=== PATIENT | female | born 2000 | race Caucasian/White ===

== ENCOUNTER 2018-11-13 08:00 | Emergency (ER) | payer OTHER, MEDICAID ==
[2018-11-13] MEDS: Sodium Chloride 0.9% 1,000 ML IV ONE (08:20)
[2018-11-13] MEDS: Dexamethasone 4 MG/ML SDV IVPUSH ONE (08:22)
[2018-11-13] MEDS: Sodium Chloride 0.9% 10 ML Syringe FLUSH PRN (08:25)
[2018-11-13] MEDS: Ondansetron 4 MG/2 ML SDV IVPUSH ONE (08:25)
[2018-11-13] MEDS: diphenhydrAMINE 50 MG/ML SDV IVPUSH ONE (08:29)
--- NOTE | 2018-11-13 09:02 | EDM.PDOC ---
ED HPI GENERAL MEDICAL PROBLEM - General Chief Complaint: General Stated Complaint: Migraine Time Seen by Provider: 11/13/18 08:50 Source of Information: Reports: Patient History Limitations: Reports: No Limitations - History of Present Illness INITIAL COMMENTS - FREE TEXT/NARRATIVE: Patient is a 17-year-old female who presents to the emergency department this morning with a complaint of migraine headache. Patient states that the migraine began yesterday afternoon, is a typical migraine for herself, and was not relieved with Motrin. Patient states headache is diffuse, moderate in intensity, and she does have some light sensitivity. Patient denies fever, stiff neck, out of country travel, blurry vision, upper respiratory or sinus issues, or any head injury. Onset: Gradual Duration: Day(s): Location: Reports: Head Quality: Reports: Ache, Throbbing Severity: Mild Improves with: Reports: None Worsens with: Reports: None Associated Symptoms: Reports: Headaches, Nausea/Vomiting. Denies: Fever/Chills Headache Pain Score (Numeric/FACES): 8 - Related Data Allergies Allergy/AdvReac Type Severity Reaction Status Date / Time Sulfa (Sulfonamide Allergy Rash Verified 11/13/18 08:17 Antibiotics) Home Meds: Home Meds DULoxetine HCl [Duloxetine HCl] 60 mg PO DAILY 11/13/18 [History] Ibuprofen 400 mg PO QID PRN 11/13/18 [History] SUMAtriptan [Imitrex] 25 mg PO TID #30 tab 11/13/18 [Rx] traMADol [Ultram] 50 mg PO Q6HR PRN 11/13/18 [History] ED ROS GENERAL - Review of Systems Review Of Systems: ROS reveals no pertinent complaints other than HPI. Constitutional: Reports: No Symptoms HEENT: Denies: Eye Pain, Sinus Problem Respiratory: Reports: No Symptoms Cardiovascular: Reports: No Symptoms Endocrine: Reports: No Symptoms GI/Abdominal: Reports: No Symptoms : Reports: No Symptoms Musculoskeletal: Reports: No Symptoms Skin: Reports: No Symptoms Neurological: Reports: Headache. Denies: Confusion, Dizziness, Numbness, Syncope, Trouble Speaking, Change in Speech, Gait Disturbance Psychiatric: Reports: No Symptoms Hematologic/Lymphatic: Reports: No Symptoms Immunologic: Reports: No Symptoms ED EXAM, GENERAL - Physical Exam Exam: See Below Exam Limited By: No Limitations General Appearance: Alert, WD/WN, No Apparent Distress Eye Exam: Bilateral Eye: Normal Inspection Ears: Normal External Exam, Normal Canal, Hearing Grossly Normal, Normal TMs Ear Exam: Bilateral Ear: Canal Normal, TM normal Nose: Normal Inspection, Normal Mucosa, No Blood Throat/Mouth: Normal Inspection, Normal Oropharynx, No Airway Compromise Head: Atraumatic, Normocephalic Neck: Normal Inspection, Supple, Non-Tender, Full Range of Motion. No: Lymphadenopathy (L), Lymphadenopathy (R) Respiratory/Chest: No Respiratory Distress, Lungs Clear, Normal Breath Sounds, No Accessory Muscle Use, Chest Non-Tender Cardiovascular: Regular Rate, Rhythm, No Murmur GI/Abdominal: Normal Bowel Sounds, Soft, Non-Tender Back Exam: Normal Inspection Extremities: Normal Inspection, No Pedal Edema Neurological: Alert, Oriented, CN II-XII Intact, Normal Cognition, No Motor/ Sensory Deficits Psychiatric: Normal Affect, Normal Mood Skin Exam: Warm, Dry, Intact, Normal Color, No Rash Lymphatic: No Adenopathy Course - Vital Signs Last Recorded V/S: Last Vital Signs Temp 97.3 F 11/13/18 08:05 Pulse 80 11/13/18 08:05 Resp 16 11/13/18 08:05 BP 145/83 H 11/13/18 08:05 Pulse Ox 98 11/13/18 08:05 - Orders/Labs/Meds Orders: Active Orders 24 hr Category Date Time Status Peripheral IV Care [RC] . DIRECTED Care 11/13/18 08:15 Active Sodium Chloride 0.9% [Normal Saline] 1,000 ml Med 11/13/18 08:15 Active IV .BOLUS Sodium Chloride 0.9% [Saline Flush] Med 11/13/18 08:15 Active 10 ml FLUSH Q8HR PRN Peripheral IV Insertion Adult [OM.PC] Routine Oth 11/13/18 08:15 Ordered Medication Orders Sodium Chloride (Normal Saline) 1,000 mls @ 999 mls/hr IV .BOLUS ONE Stop: 11/13/18 09:15 Last Admin: 11/13/18 08:20 Dose: 999 mls/hr Sodium Chloride (Saline Flush) 10 ml FLUSH Q8HR PRN PRN Reason: keep vein open Meds: Medications Generic Name Dose Route Start Last Admin Trade Name Freq PRN Reason Stop Dose Admin Sodium Chloride 1,000 mls @ 999 mls/hr 11/13/18 08:15 11/13/18 08:20 Normal Saline IV 11/13/18 09:15 999 mls/hr .BOLUS ONE Administration Sodium Chloride 10 ml 11/13/18 08:15 Saline Flush FLUSH Q8HR PRN keep vein open Discontinued Medications Generic Name Dose Route Start Last Admin Trade Name Everettq PRN Reason Stop Dose Admin Dexamethasone 8 mg 11/13/18 08:16 11/13/18 08:22 Dexamethasone IVPUSH 11/13/18 08:17 8 mg ONETIME ONE Administration Diphenhydramine HCl 25 mg 11/13/18 08:15 11/13/18 08:29 Benadryl IVPUSH 11/13/18 08:16 25 mg ONETIME ONE Administration Ondansetron HCl 4 mg 11/13/18 08:15 11/13/18 08:25 Zofran IVPUSH 11/13/18 08:16 4 mg ONETIME ONE Administration - Re-Assessments/Exams Free Text/Narrative Re-Assessment/Exam: 11/13/18 09:21 Patient afebrile, vital signs stable, headache, mostly resolved. Patient given 1 L normal saline, Decadron, Benadryl, Zofran. Patient will follow-up with PCP. Patient given prescription for Imitrex. Departure - Departure Time of Disposition: 09:22 Disposition: Home, Self-Care 01 Condition: Good Clinical Impression: Migraine headache Qualifiers: Migraine type: without aura Status migrainosus presence: without status migrainosus Intractability: not intractable Qualified Code(s): G43.009 - Migraine without aura, not intractable, without status migrainosus - Discharge Information Instructions: Recurrent Migraine Headache, [id number] Referrals: Monserrat Thomas PA-C [Primary Care Provider] - Additional Instructions: Follow up with Monserrat next 2-3 days. Return to emergency department sooner if symptoms continue or worsen. Take medication as prescribed. - My Orders Last 24 Hours: My Active Orders 11/13/18 08:15 Peripheral IV Care [RC] . DIRECTED Sodium Chloride 0.9% [Normal Saline] 1,000 ml IV .BOLUS Sodium Chloride 0.9% [Saline Flush] 10 ml FLUSH Q8HR PRN Peripheral IV Insertion Adult [OM.PC] Routine - Assessment/Plan Last 24 Hours: My Active Orders 11/13/18 08:15 Peripheral IV Care [RC] . DIRECTED Sodium Chloride 0.9% [Normal Saline] 1,000 ml IV .BOLUS Sodium Chloride 0.9% [Saline Flush] 10 ml FLUSH Q8HR PRN Peripheral IV Insertion Adult [OM.PC] Routine Assessment:: Migraine headache Plan: Follow-up with PCP
== END 2018-11-13 10:08 | disposition home or self-care (01) ==
LOC: KA.ED 08:00
DX: G43.009 Migraine without aura, not intractable, without status migrainosus (principal); Z88.2 Allergy status to sulfonamides; Z79.899 Other long term (current) drug therapy
CPT/HCPCS: 96361; 96374; 96375; 99283; J1100; J1200; J2405; J7030

== ENCOUNTER 2019-10-10 16:19 | Emergency (ER) | payer OTHER ==
--- NOTE | 2019-10-10 16:55 | EDM.PDOC ---
ED HPI GENERAL MEDICAL PROBLEM - General Chief Complaint: Gastrointestinal Problem Stated Complaint: ABDOMINAL PAIN Time Seen by Provider: 10/10/19 16:25 Source of Information: Reports: Patient History Limitations: Reports: No Limitations - History of Present Illness INITIAL COMMENTS - FREE TEXT/NARRATIVE: Patient is a 18-year-old female who presents to the emergency department via private vehicle with a complaint of abdominal pain. Patient states that she has chronic abdominal pain secondary to endometriosis. Patient states that intercourse is very painful. However, she does participate in unprotected sex. Patient has been seen multiple times for this condition, and is currently on hydrocodone for pain control. Patient states she has irregular menses and has a small amount of vaginal discharge. Patient denies fever, chest pain, shortness of breath, nausea, vomiting, diarrhea, vaginal bleeding, suspicion of . Onset: Gradual Duration: Chronic Location: Reports: Abdomen Quality: Reports: Other (Cramping) Improves with: Reports: None Worsens with: Reports: None Associated Symptoms: Reports: No Other Symptoms. 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 Constitutional: Reports: No Symptoms HEENT: Reports: No Symptoms Respiratory: Reports: No Symptoms Cardiovascular: Reports: No Symptoms Endocrine: Reports: No Symptoms GI/Abdominal: Reports: Abdominal Pain : Reports: Irregular Menses, Pain. Denies: Flank Pain Musculoskeletal: Reports: No Symptoms Skin: Reports: No Symptoms Neurological: Reports: No Symptoms Psychiatric: Reports: No Symptoms Hematologic/Lymphatic: Reports: No Symptoms Immunologic: Reports: No Symptoms ED EXAM, GI/ABD - Physical Exam Exam: See Below Exam Limited By: No Limitations General Appearance: Alert, WD/WN, No Apparent Distress Throat/Mouth: Normal Inspection, Normal Oropharynx, No Airway Compromise Head: Atraumatic, Normocephalic Respiratory/Chest: No Respiratory Distress, Lungs Clear, Normal Breath Sounds, No Accessory Muscle Use, Chest Non-Tender Cardiovascular: Regular Rate, Rhythm, No Murmur GI/Abdominal Exam: Normal Bowel Sounds, Soft, Tender (Suprapubic) (Female) Exam: Normal External Exam, Normal Speculum Exam, Normal Bimanual Exam, Cervical Discharge (Minimal white), Vaginal Discharge. No: Adnexal Mass, Adnexal Tenderness, Cervical Dilatation, Cervical Lesions, Cervix Motion Tenderness, Enlarged Uterus, Uterine Tenderness, Vaginal Bleeding, Vaginal Lesions, Vaginal Tears Rectal (Female) Exam: Deferred Back Exam: Normal Inspection. No: CVA Tenderness (L), CVA Tenderness (R) Extremities: Normal Inspection Neurological: Alert, Oriented, Normal Cognition Psychiatric: Normal Affect, Normal Mood Skin Exam: Warm, Dry, Intact, Normal Color, No Rash Lymphatic: No Adenopathy Course - Vital Signs Last Recorded V/S: Last Vital Signs Temp 98.2 F 10/10/19 16:44 Pulse 70 10/10/19 16:44 Resp 16 10/10/19 16:44 BP 146/83 H 10/10/19 16:44 Pulse Ox 99 10/10/19 16:44 - Orders/Labs/Meds Orders: Active Orders 24 hr Category Date Time Status CHLAMYDIA AND GONORRHEA BY TMA Stat Lab 10/10/19 17:40 Received Labs: Laboratory Tests 10/10/19 10/10/19 10/10/19 Range/Units 16:48 16:48 17:00 WBC 6.60 (5.00-10.00) 10^3/uL RBC 4.75 (3.80-5.50) 10^6/uL Hgb 14.1 (12.0-16.0) g/dL Hct 42.3 (37.0-47.0) % MCV 89.1 (82.0-92.0) fL MCH 29.7 (27.0-31.0) pg MCHC 33.3 (32.0-36.0) g/dL RDW 12.5 (11.5-14.5) % Plt Count 255 (150-400) 10^3/uL MPV 9.9 (7.4-10.4) fL Immature Gran % (Auto) 0.3 (0.0-5.0) % Neut % (Auto) 54.7 (50.0-70.0) % Lymph % (Auto) 34.1 (20.0-40.0) % [place] % (Auto) 9.1 H (2.0-8.0) % Eos % (Auto) 1.2 (1.0-3.0) % Baso % (Auto) 0.6 (0.0-1.0) % Neut # (Auto) 3.61 (2.50-7.00) 10^3/uL Lymph # (Auto) 2.25 (1.00-4.00) 10^3/uL [place] # (Auto) 0.60 (0.10-0.80) 10^3/uL Eos # (Auto) 0.08 L (0.10-0.30) 10^3/uL Baso # (Auto) 0.04 (0.00-0.10) 10^3/uL Immature Gran # (Auto) 0.02 (0.00-0.50) 10^3/uL Sodium 143 (136-145) mmol/L Potassium 3.8 (3.3-5.3) mmol/L Chloride 106 (98-115) mmol/L Carbon Dioxide 27.2 (21.0-32.0) mmol/L Anion Gap 13.6 (5-15) mmol/L BUN 14 (6-25) mg/dL Creatinine 0.62 (0.51-1.17) mg/dL Est Cr Clr Drug Dosing 109.22 mL/min Estimated GFR (MDRD) > 60 mL/min Glucose 86 (75 - 99) mg/dL Calcium 8.8 (8.7-10.3) mg/dL HCG, Quant 1 mIU/mL Specimen Type Urincc Urine Color Yellow (YELLOW) Urine Appearance Clear (CLEAR) Urine pH 7.0 (5.0-9.0) Ur Specific [place] 1.020 (1.005-1.030) Urine Protein Negative (NEGATIVE) mg/dL Urine Glucose (UA) Negative (NEGATIVE) mg/dL Urine Ketones Negative (NEGATIVE) mg/dL Urine Occult Blood Negative (NEGATIVE) Urine Nitrite Negative (NEGATIVE) Urine Bilirubin Negative (NEGATIVE) Urine Urobilinogen 0.2 (0.2-1.0) E.U./dL Ur Leukocyte Esterase Negative (NEGATIVE) Urine RBC 0-5 (0-5) /HPF Urine WBC 0-5 (0-5) /HPF Ur Epithelial Cells Moderate H /LPF Urine Bacteria Moderate H (NONE TO FEW) /HPF Urine Mucus Moderate H (NEGATIVE) /LPF - Radiology Interpretation Free Text/Narrative:: CT abdomen and pelvis show no acute intra-abdominal process - Re-Assessments/Exams Free Text/Narrative Re-Assessment/Exam: 10/10/19 18:53 Patient afebrile, vital signs stable, pain controlled. GC and chlamydia results pending Patient will follow-up with PCP 10/10/19 18:54 Departure - Departure Time of Disposition: 18:54 Disposition: Home, Self-Care 01 Condition: Good Clinical Impression: Abdominal pain - Discharge Information Instructions: Abdominal Pain, Adult, [id number] Referrals: Monserrat Thomas PA-C [Primary Care Provider] - Forms: ED Department Discharge Additional Instructions: Follow up with Monserrat on Saturday. Return to emergency department sooner if symptoms continue or worsen. Sepsis Event Note - Focused Exam Vital Signs: Vital Signs Temp Pulse Resp BP Pulse Ox 10/10/19 16:44 98.2 F 70 16 146/83 H 99 Date Exam was Performed: 10/10/19 Time Exam was Performed: 18:55 - My Orders Last 24 Hours: My Active Orders 10/10/19 17:40 CHLAMYDIA AND GONORRHEA BY TMA Stat - Assessment/Plan Last 24 Hours: My Active Orders 10/10/19 17:40 CHLAMYDIA AND GONORRHEA BY TMA Stat Assessment:: Abdominal pain Plan: Follow-up with PCP
[2019-10-10 17:33] LABS: ANION GAP 13.6 mmol/L (5-15); CHLORIDE,CL 106 mmol/L (98-115); SODIUM,NA 143 mmol/L (136-145)
--- NOTE | 2019-10-10 18:50 | CT ---
[id number] CT/CT Abdomen Pelvis WO IV EXAM: CT Abdomen Pelvis WO IV CLINICAL DATA: ABDOMINAL PAIN. COMPARISON STUDY: None. FINDINGS: Lung bases are clear. Liver, spleen, gallbladder, pancreas, adrenal glands, and kidneys are unremarkable. No bowel obstruction or inflammation. There is an appendicolith without evidence of acute appendicitis. Colonic diverticulosis without evidence of acute diverticulitis. No lymphadenopathy, free fluid, or pneumoperitoneum. Right adnexal cyst measuring up to 2.8 cm. Scattered changes of spondylosis the spine. No fracture or osseous lesion. IMPRESSION: 1. Multiple appendicoliths without evidence of acute appendicitis. No definite acute CT findings within the abdomen or pelvis to explain the patient's symptoms. Kevin Bedolla DO 10/10/19 [id number] Thank you for allowing us to participate in the care of your patient.
== END 2019-10-10 19:05 | disposition home or self-care (01) ==
LOC: KA.ED 16:19
DX: R10.30 Lower abdominal pain, unspecified (principal); G43.909 Migraine, unspecified, not intractable, without status migrainosus; F32.9 Major depressive disorder, single episode, unspecified; Z79.899 Other long term (current) drug therapy; Z88.2 Allergy status to sulfonamides
CPT/HCPCS: 36415; 74176; 80048; 81001; 84702; 85025; 87491; 87591; 99284-25

== ENCOUNTER 2019-11-20 11:35 | Emergency (ER) | payer OTHER ==
[2019-11-20] MEDS ORDERED: HYDROmorphone 1 MG/ML Syringe IVPUSH ONE (11:55)
--- NOTE | 2019-11-20 12:26 | EDM.PDOC ---
ED HPI GENERAL MEDICAL PROBLEM - General Chief Complaint: Abdominal Pain Stated Complaint: SEVERE STOMACH PAIN Time Seen by Provider: 11/20/19 12:15 Source of Information: Reports: Patient, Significant Other History Limitations: Reports: No Limitations - History of Present Illness INITIAL COMMENTS - FREE TEXT/NARRATIVE: Patient presents with abdominal pain that started yesterday after a laparascopic surgery in [place] for endometriosis and ovarian cyst removal. She says the pain is in the entire abdomen and up into her chest. She took Ibuprofen 600 mg and Hydrocodone 5/325 two hours ago and Hydrocodone 10/325 1.5 hours ago. She had a CT two weeks ago that didn't show the cyst which was found during procedure yesterday. She doesn't want another CT. She wants something stronger for pain control. She passed stool yesterday morning prior to the procedure. She ate a few crackers today and passed urine. 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 PICKLER: Reports: Other Medication(s) Lower Abdominal Pain Score (Numeric/FACES): 8 - Related Data Allergies Allergy/AdvReac Type Severity Reaction Status Date / Time Sulfa (Sulfonamide Allergy Rash Verified 11/20/19 11:46 Antibiotics) Home Meds: Home Meds DULoxetine HCl [Duloxetine HCl] 60 mg PO DAILY 11/13/18 [History] Hydrocodone/Acetaminophen [Hydrocodone-Acetamin 5-325 mg] 1 - 2 tab PO Q4H PRN 10/10/19 [History] Acetaminophen/HYDROcodone [[place] 325-10 MG] 1 tab PO ASDIRECTED 11/20/19 [History] Ergocalciferol (Vitamin D2) [Drisdol] 1,250 mcg PO ASDIRECTED 11/20/19 [History] Ibuprofen 600 mg PO TID 11/20/19 [History] Past Medical History 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: 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, Other (See Below) Other FARE COLLECTOR History: Surgical for endometriosis Musculoskeletal History: Reports: Fibromyalgia Neurological History: Reports: Migraines Psychiatric History: Reports: Depression - Past Surgical History Head Surgeries/Procedures: Reports: None Social & Family History - Family History Family Medical History: Noncontributory ED ROS GENERAL - Review of Systems Review Of Systems: See Below (Patient left abruptly so ROS is limited) Constitutional: Denies: Chills, Weakness HEENT: Denies: Throat Pain, Vision Change Respiratory: Denies: Shortness of Breath, Cough Cardiovascular: Denies: Syncope GI/Abdominal: Reports: Abdominal Pain. Denies: Constipation, Diarrhea, Vomiting : Reports: Dysuria (it hurt a little when she urinated an hour ago). Denies: Hematuria, Incontinence Musculoskeletal: Reports: No Symptoms Skin: Denies: Cyanosis, Jaundice, Mottled, Pallor, Diaphoresis Neurological: Denies: Confusion, Seizure, Syncope, Trouble Speaking, Difficulty Walking Psychiatric: Reports: Agitation, Anxiety. Denies: Confusion ED EXAM, GI/ABD - Physical Exam Exam: See Below Exam Limited By: No Limitations General Appearance: Alert, WD/WN, No Apparent Distress Eyes: Bilateral: Normal Appearance, EOMI Ears: Normal External Exam, Hearing Grossly Normal Nose: Normal Inspection, No Blood Throat/Mouth: Normal Inspection, Normal Voice, No Airway Compromise Head: Atraumatic, Normocephalic Neck: Normal Inspection, Full Range of Motion Respiratory/Chest: No Respiratory Distress, Lungs Clear, Normal Breath Sounds, No Accessory Muscle Use Cardiovascular: Regular Rate, Rhythm, No Murmur GI/Abdominal Exam: Normal Bowel Sounds, Soft, No Organomegaly, No Distention, Tender (throughout but worse in LLQ; incisions consistent with recent laparoscopy in RLQ and LLQ without evidence of infection.). No: Distended, Rigid Back Exam: Full Range of Motion, CVA Tenderness (L), CVA Tenderness (R) Extremities: Normal Inspection, Normal Range of Motion Neurological: Alert, Oriented, Normal Cognition, No Motor/Sensory Deficits Psychiatric: Normal Affect, Anxious Skin Exam: Warm, Dry, Intact, Normal Color, No Rash Course - Vital Signs Last Recorded V/S: Last Vital Signs Temp 100.5 F 11/20/19 11:37 Pulse 91 11/20/19 11:37 Resp 16 11/20/19 11:37 BP 143/81 H 11/20/19 11:37 Pulse Ox 98 11/20/19 11:37 - Orders/Labs/Meds Orders: Active Orders 24 hr Category Date Time Status Abdomen Pelvis w Cont [CT] Stat Exams 11/20/19 11:55 Ordered Meds: Medications Discontinued Medications Generic Name Dose Route Start Last Admin Trade Name Freq PRN Reason Stop Dose Admin Hydromorphone HCl 1 mg 11/20/19 11:55 Dilaudid IVPUSH 11/20/19 11:56 ONETIME ONE - Re-Assessments/Exams Free Text/Narrative Re-Assessment/Exam: 11/20/19 12:45 I was discussing findings and treatment options with patient. I offered IV Toradol and Dilaudid but patient declined when she learned that she wouldn't get anything stronger to take home with her. She says she has plenty of the Hydrocodone 5/325 and 10/325 as well as Ibuprofen 600 at home. I advised her to walk several times a day to help remove the abdominal gas from the surgery. Patient left abruptly. Departure - Departure Time of Disposition: 12:48 Disposition: Home, Self-Care 01 Condition: Good Clinical Impression: Abdominal pain - Discharge Information Referrals: Monserrat hTomas PA-C [Primary Care Provider] - Sepsis Event Note (ED) - Evaluation Sepsis Screening Result: No Definite Risk - Focused Exam Vital Signs: Vital Signs Temp Pulse Resp BP Pulse Ox 11/20/19 11:37 100.5 F 91 16 143/81 H 98 - My Orders Last 24 Hours: My Active Orders 11/20/19 11:55 Abdomen Pelvis w Cont [CT] Stat - Assessment/Plan Last 24 Hours: My Active Orders 11/20/19 11:55 Abdomen Pelvis w Cont [CT] Stat
== END 2019-11-20 12:30 | disposition home or self-care (01) ==
LOC: KA.ED 11:35
DX: R10.32 Left lower quadrant pain (principal); F32.9 Major depressive disorder, single episode, unspecified; Z88.2 Allergy status to sulfonamides; Z79.899 Other long term (current) drug therapy
CPT/HCPCS: 99283; 99284

== ENCOUNTER 2019-11-24 16:16 | Emergency (ER) | payer OTHER ==
[2019-11-24 16:33] VITALS: BP 155/78; PULSE 97
[2019-11-24] MEDS: Sodium Chloride 0.9% 1,000 ML IV ONE (16:55)
[2019-11-24] MEDS ORDERED: Sodium Chloride 0.9% 10 ML Syringe FLUSH PRN (16:59)
--- NOTE | 2019-11-24 17:17 | EDM.PDOC ---
ED HPI GENERAL MEDICAL PROBLEM - General Chief Complaint: General Stated Complaint: VAGINAL BLEEDING Time Seen by Provider: 11/24/19 16:45 Source of Information: Reports: Patient History Limitations: Reports: No Limitations - History of Present Illness INITIAL COMMENTS - FREE TEXT/NARRATIVE: 18 YO FEMALE PRESENTS TO ER COMPLAINING OF VAGINAL BLEEDING WHICH BEGAN 5 DAYS AGO. PT REPORTS LAPAROSCOPIC ABDOMINAL SURGERY FOR ENDOMETRIOSIS ON 11/19/2019. PT STATES SHE WAS HAVING VAGINAL BLEEDING THE FOLLOWING DAY AND BECAME CONCERNED WHEN SHE NOTICED LARGE CLOTS. PT REPORTS THE BLEEDING HAS BEEN LESS THAN HER NORMAL MENSES BUT AFTER TALKING TO HER NURSE PRACTICAL SHE THOUGHT IT WOULD BE BEST TO HAVE HER BLOOD COUNT CHECKED. PT STATES SHE FEELS FATIGUED BUT DENIES SHORTNESS OF BREATH, CHEST PAIN OR DIZZINESS. PT DENIES FEVER/CHILLS, HAS NAUSEA WITHOUT VOMITING. Onset Date: 11/19/19 Duration: Day(s): (5) Location: Reports: Generalized Severity: Mild Improves with: Reports: None Worsens with: Reports: None Associated Symptoms: Reports: Malaise, Nausea/Vomiting - Related Data Allergies Allergy/AdvReac Type Severity Reaction Status Date / Time Sulfa (Sulfonamide Allergy Rash Verified 11/24/19 16:33 Antibiotics) Home Meds: Home Meds DULoxetine HCl [Duloxetine HCl] 60 mg PO DAILY 11/13/18 [History] Hydrocodone/Acetaminophen [Hydrocodone-Acetamin 5-325 mg] 1 - 2 tab PO Q4H PRN 10/10/19 [History] Acetaminophen/HYDROcodone [[place] 325-10 MG] 1 tab PO ASDIRECTED 11/20/19 [History] Ergocalciferol (Vitamin D2) [Drisdol] 1,250 mcg PO ASDIRECTED 11/20/19 [History] Ibuprofen 600 mg PO TID PRN 11/20/19 [History] SUMAtriptan succinate [Imitrex] 25 mg PO Q2H PRN 11/24/19 [History] traMADol HCl [Tramadol HCl] 50 mg PO QID PRN 11/24/19 [History] Past Medical History Cardiovascular History: Reports: Heart Murmur 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: Reports: 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, Other (See Below) Other 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: Surgical for endometriosis Musculoskeletal History: Reports: Fibromyalgia Neurological History: Reports: Migraines Psychiatric History: Reports: Depression - Past Surgical History Head Surgeries/Procedures: Reports: None Social & Family History - Family History Family Medical History: Noncontributory - Tobacco Use Smoking Status *Q: Current Some Day Smoker Years of Tobacco use: 3 Packs/Tins Daily: 0.1 - Caffeine Use Caffeine Use: Reports: Coffee, Energy Drinks, Tea - Recreational Drug Use Recreational Drug Use: Yes Drug Use in Last 12 Months: Yes Recreational Drug Type: Reports: Marijuana/Hashish ED ROS GENERAL - Review of Systems Review Of Systems: See Below Constitutional: Reports: No Symptoms HEENT: Reports: No Symptoms Respiratory: Reports: No Symptoms Cardiovascular: Reports: No Symptoms Endocrine: Reports: No Symptoms GI/Abdominal: Reports: Nausea : Reports: No Symptoms Musculoskeletal: Reports: No Symptoms Skin: Reports: No Symptoms Neurological: Reports: No Symptoms Psychiatric: Reports: No Symptoms Hematologic/Lymphatic: Reports: No Symptoms Immunologic: Reports: No Symptoms ED EXAM, GENERAL - Physical Exam Exam: See Below Exam Limited By: No Limitations General Appearance: Alert, WD/WN, No Apparent Distress Eye Exam: Bilateral Eye: EOMI, PERRL Throat/Mouth: Normal Inspection, Normal Lips, Normal Teeth, Normal Gums, Normal Oropharynx, Normal Voice, No Airway Compromise Head: Atraumatic, Normocephalic Neck: Normal Inspection, Supple, Non-Tender, Full Range of Motion Respiratory/Chest: No Respiratory Distress, Lungs Clear, Normal Breath Sounds, No Accessory Muscle Use, Chest Non-Tender Cardiovascular: Normal Peripheral Pulses, Regular Rate, Rhythm, No Edema, No Gallop, No JVD, No Murmur, No Rub GI/Abdominal: Normal Bowel Sounds, Soft, Non-Tender, No Organomegaly, No Distention, No Abnormal Bruit, No Mass Back Exam: Normal Inspection, Full Range of Motion, NT Extremities: Normal Inspection, Normal Range of Motion, Non-Tender, Normal Capillary Refill, No Pedal Edema Neurological: Alert, Oriented, CN II-XII Intact, Normal Cognition, Normal Gait, Normal Reflexes, No Motor/Sensory Deficits Psychiatric: Normal Affect, Normal Mood Skin Exam: Warm, Dry, Intact, Normal Color, No Rash Lymphatic: No Adenopathy Course - Vital Signs Last Recorded V/S: Last Vital Signs Temp 36.1 C 11/24/19 16:25 Pulse 97 11/24/19 16:25 Resp 18 11/24/19 16:25 BP 155/78 H 11/24/19 16:25 Pulse Ox 98 11/24/19 16:25 Orthostatic Blood Pressure [ 130/80 Standing] Orthostatic Blood Pressure [ 141/83 Sitting] Orthostatic Blood Pressure [ 154/88 Supine] - Orders/Labs/Meds Orders: Active Orders 24 hr Category Date Time Status Peripheral IV Care [RC] . DIRECTED Care 11/24/19 16:59 Active Sodium Chloride 0.9% [Normal Saline] 1,000 ml Med 11/24/19 16:43 Active IV .BOLUS Sodium Chloride 0.9% [Saline Flush] Med 11/24/19 16:59 Active 10 ml FLUSH Q8HR PRN Peripheral IV Insertion Adult [OM.PC] Routine Oth 11/24/19 16:59 Ordered Medication Orders Sodium Chloride (Normal Saline) 1,000 mls @ 999 mls/hr IV .BOLUS ONE Stop: 11/24/19 17:43 Last Admin: 11/24/19 16:55 Dose: 999 mls/hr Documented by: NICOLAS Sodium Chloride (Saline Flush) 10 ml FLUSH Q8HR PRN PRN Reason: keep vein open Labs: Laboratory Tests 11/24/19 11/24/19 Range/Units 16:54 16:54 WBC 6.78 (5.00-10.00) 10^3/uL RBC 4.93 (3.80-5.50) 10^6/uL Hgb 14.6 (12.0-16.0) g/dL Hct 43.6 (37.0-47.0) % MCV 88.4 (82.0-92.0) fL MCH 29.6 (27.0-31.0) pg MCHC 33.5 (32.0-36.0) g/dL RDW 12.1 (11.5-14.5) % Plt Count 291 D (150-400) 10^3/uL MPV 9.7 (7.4-10.4) fL Immature Gran % (Auto) 0.4 (0.0-5.0) % Neut % (Auto) 58.6 (50.0-70.0) % Lymph % (Auto) 29.4 (20.0-40.0) % Weber % (Auto) 6.9 (2.0-8.0) % Eos % (Auto) 3.8 H (1.0-3.0) % Baso % (Auto) 0.9 (0.0-1.0) % Neut # (Auto) 3.97 (2.50-7.00) 10^3/uL Lymph # (Auto) 1.99 (1.00-4.00) 10^3/uL Weber # (Auto) 0.47 (0.10-0.80) 10^3/uL Eos # (Auto) 0.26 (0.10-0.30) 10^3/uL Baso # (Auto) 0.06 (0.00-0.10) 10^3/uL Immature Gran # (Auto) 0.03 (0.00-0.50) 10^3/uL Sodium 140 (136-145) mmol/L Potassium 4.0 (3.3-5.3) mmol/L Chloride 103 (98-115) mmol/L Carbon Dioxide 28.8 (21.0-32.0) mmol/L Anion Gap 12.2 (5-15) mmol/L BUN 9 (6-25) mg/dL Creatinine 0.70 (0.51-1.17) mg/dL Est Cr Clr Drug Dosing 96.74 mL/min Estimated GFR (MDRD) > 60 mL/min Glucose 86 (75 - 99) mg/dL Calcium 9.3 (8.7-10.3) mg/dL Total Bilirubin 0.5 (0.2-1.0) mg/dL AST 12 L (15-37) U/L ALT 16 (12-78) U/L Alkaline Phosphatase 56 (46-116) IU/L Total Protein 8.3 H (6.4-8.2) g/dL Albumin 4.51 (3.00-4.80) g/dL HCG, Qual Negative (NEGATIVE) Meds: Medications Generic Name Dose Route Start Last Admin Trade Name Freq PRN Reason Stop Dose Admin Sodium Chloride 1,000 mls @ 999 mls/hr 11/24/19 16:43 11/24/19 16:55 Normal Saline IV 11/24/19 17:43 999 mls/hr .BOLUS ONE Administration Sodium Chloride 10 ml 11/24/19 16:59 Saline Flush FLUSH Q8HR PRN keep vein open Departure - Departure Time of Disposition: 17:21 Disposition: Home, Self-Care 01 Condition: Good Clinical Impression: Dysfunctional uterine bleeding - Discharge Information Instructions: Abnormal Uterine Bleeding Referrals: Monserrat Thomas PA-C [Primary Care Provider] - Forms: ED Department Discharge Additional Instructions: 1. DISCHARGE HOME 2. FOLLOW UP WITH NURSE PRACTICAL FOR CONSIDERATION OF HORMONE REPLACEMENT THERAPY 3. RETURN TO ER FOR WORSENING SYMPTOMS 4. RETURN TO ER IF BLEEDING THROUGH 5 PADS IN 1 HOUR OR YOU BECOME SYMPTOMATIC. Sepsis Event Note (ED) - Evaluation Sepsis Screening Result: No Definite Risk - Focused Exam Vital Signs: Vital Signs Temp Pulse Resp BP Pulse Ox 11/24/19 16:25 36.1 C 97 18 155/78 H 98 - My Orders Last 24 Hours: My Active Orders 11/24/19 16:43 Sodium Chloride 0.9% [Normal Saline] 1,000 ml IV .BOLUS 11/24/19 16:59 Peripheral IV Care [RC] . DIRECTED Sodium Chloride 0.9% [Saline Flush] 10 ml FLUSH Q8HR PRN Peripheral IV Insertion Adult [OM.PC] Routine - Assessment/Plan Last 24 Hours: My Active Orders 11/24/19 16:43 Sodium Chloride 0.9% [Normal Saline] 1,000 ml IV .BOLUS 11/24/19 16:59 Peripheral IV Care [RC] . DIRECTED Sodium Chloride 0.9% [Saline Flush] 10 ml FLUSH Q8HR PRN Peripheral IV Insertion Adult [OM.PC] Routine Assessment:: 1. DYSFUNCTIONAL UTERINE BLEEDING Plan: 1. DISCHARGE HOME 2. FOLLOW UP WITH NURSE PRACTICAL FOR CONSIDERATION OF HORMONE REPLACEMENT THERAPY 3. RETURN TO ER FOR WORSENING SYMPTOMS 4. RETURN TO ER IF BLEEDING THROUGH 5 PADS IN 1 HOUR OR YOU BECOME SYMPTOMATIC.
[2019-11-24 17:23] LABS: ANION GAP 12.2 mmol/L (5-15); CHLORIDE,CL 103 mmol/L (98-115); SODIUM,NA 140 mmol/L (136-145)
== END 2019-11-24 17:45 | disposition home or self-care (01) ==
LOC: KA.ED 16:16
DX: N93.8 Other specified abnormal uterine and vaginal bleeding (principal); F32.9 Major depressive disorder, single episode, unspecified; F17.210 Nicotine dependence, cigarettes, uncomplicated; Z79.899 Other long term (current) drug therapy; Z88.2 Allergy status to sulfonamides
CPT/HCPCS: 36415; 80053; 84703; 85025; 96360; 99284; 99284-25; J7030

== ENCOUNTER 2020-06-24 12:41 | Emergency (ER) | payer OTHER ==
[2020-06-24] MEDS ORDERED: Sodium Chloride 0.9% 10 ML Syringe FLUSH PRN (12:45)
--- NOTE | 2020-06-24 13:18 | EDM.PDOC ---
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 PT WITH HISTORY OF ENDOMETRIOSIS AND OVARIAN CYST WHICH SHES HAD EXPLORATORY LAPAROSCOPY 11/2019. PT REPORTS SHE WAS SEEN IN [place] ER LAST WEEK FOR LOWER ABDOMINAL PAIN AND HAD A NORMAL CT OF HER ABD/PELVIS AND WAS SENT HOME WITH PAIN MEDICATION FOR HER CHRONIC ABDOMINAL COMPLAINTS. PT DENIES FEVER/CHILLS, NO NAUSEA/VOMITING, NO BACK OR FLANK PAIN. Onset: Today Duration: Chronic, Waxing/Waning Location: Reports: Abdomen Quality: Reports: Ache Severity: Moderate Improves with: Reports: None Worsens with: Reports: None Associated Symptoms: Reports: No Other Symptoms. Denies: Chest Pain, Cough, Fever/Chills, Nausea/Vomiting, Shortness of Breath Abdominal Pain Score (Numeric/FACES): 10 - Related Data Allergies Allergy/AdvReac Type Severity Reaction Status Date / Time Sulfa (Sulfonamide Allergy Rash Verified 06/24/20 12:52 Antibiotics) Home Meds: Home Meds DULoxetine HCl [Duloxetine HCl] 60 mg PO DAILY 11/13/18 [History] Hydrocodone/Acetaminophen [Hydrocodone-Acetamin 5-325 mg] 1 - 2 tab PO Q4H PRN 10/10/19 [History] Acetaminophen/HYDROcodone [[place] 325-10 MG] 1 tab PO ASDIRECTED 11/20/19 [History] Ergocalciferol (Vitamin D2) [Drisdol] 1,250 mcg PO ASDIRECTED 11/20/19 [History] Ibuprofen 600 mg PO TID PRN 11/20/19 [History] SUMAtriptan succinate [Imitrex] 25 mg PO Q2H PRN 11/24/19 [History] traMADol HCl [Tramadol HCl] 50 mg PO QID PRN 11/24/19 [History] Hydrocodone/Acetaminophen [Hydrocodone-Acetamin 10-325 mg] 1 each PO Q6HR PRN #10 tablet 06/24/20 [Rx] Nitrofurantoin Monohyd/M-Cryst [Macrobid 100 mg Capsule] 100 mg PO BID #14 capsule 06/24/20 [Rx] Phenazopyridine [Pyridium] 200 mg PO TID PRN #6 tab 06/24/20 [Rx] Past Medical History Cardiovascular History: Reports: Heart Murmur 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 History: Reports: 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, Other (See Below) Other 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 History: Surgical for endometriosis Musculoskeletal History: Reports: Fibromyalgia Neurological History: Reports: Migraines Psychiatric History: Reports: Depression - Past Surgical History Head Surgeries/Procedures: Reports: None Social & Family History - Family History Family Medical History: No Pertinent Family History - Tobacco Use Tobacco Use Status *Q: Current Every Day Tobacco User Years of Tobacco use: 5 Packs/Tins Daily: 0.1 - Caffeine Use Caffeine Use: Reports: Coffee, Energy Drinks, Tea - Alcohol Use Days Per Week of Alcohol Use: 1 Number of Drinks Per Day: 1 Total Drinks Per Week: 1 - Recreational Drug Use Recreational Drug Use: Yes Recreational Drug Type: Reports: Marijuana/Hashish ED ROS GENERAL - Review of Systems Review Of Systems: See Below Constitutional: Reports: No Symptoms HEENT: Reports: No Symptoms Respiratory: Reports: No Symptoms Cardiovascular: Reports: No Symptoms Endocrine: Reports: No Symptoms GI/Abdominal: Reports: Abdominal Pain : Reports: No Symptoms Musculoskeletal: Reports: No Symptoms Skin: Reports: No Symptoms Neurological: Reports: No Symptoms Psychiatric: Reports: No Symptoms Hematologic/Lymphatic: Reports: No Symptoms Immunologic: Reports: No Symptoms ED EXAM, GI/ABD - Physical Exam Exam: See Below Exam Limited By: No Limitations General Appearance: Alert, WD/WN, No Apparent Distress Head: Atraumatic, Normocephalic Neck: Normal Inspection, Supple, Non-Tender, Full Range of Motion Respiratory/Chest: No Respiratory Distress, Lungs Clear, Normal Breath Sounds, No Accessory Muscle Use, Chest Non-Tender Cardiovascular: Normal Peripheral Pulses, Regular Rate, Rhythm, No Edema, No Gallop, No JVD, No Murmur, No Rub GI/Abdominal Exam: Normal Bowel Sounds, Soft, No Organomegaly, No Distention, No Abnormal Bruit, No Mass, Pelvis Stable, Tender (SUPRAPUBIC PAIN) Back Exam: Normal Inspection, Full Range of Motion, NT Extremities: Normal Inspection, Normal Range of Motion, Non-Tender, Normal Capillary Refill, No Pedal Edema Neurological: Alert, Oriented, CN II-XII Intact, Normal Cognition, Normal Gait, Normal Reflexes, No Motor/Sensory Deficits Psychiatric: Normal Affect, Normal Mood Skin Exam: Warm, Dry, Intact, Normal Color, No Rash Lymphatic: No Adenopathy Course - Vital Signs Last Recorded V/S: Last Vital Signs Temp 97.9 F 06/24/20 12:47 Pulse 81 06/24/20 12:47 Resp 16 06/24/20 12:47 BP 122/80 06/24/20 12:47 Pulse Ox 98 06/24/20 12:47 - Orders/Labs/Meds Orders: Active Orders 24 hr Category Date Time Status Peripheral IV Care [RC] . DIRECTED Care 06/24/20 12:45 Active Sodium Chloride 0.9% [Saline Flush] Med 06/24/20 12:45 Active 10 ml FLUSH Q8HR PRN Peripheral IV Insertion Adult [OM.PC] Routine Oth 06/24/20 12:45 Ordered Medication Orders Sodium Chloride (Saline Flush) 10 ml FLUSH Q8HR PRN PRN Reason: keep vein open Labs: Laboratory Tests 06/24/20 06/24/20 Range/Units 13:00 13:00 Specimen Type Urinvoid Urine Color Rula H (YELLOW) Urine Appearance Turbid H (CLEAR) Urine pH 6.0 (5.0-9.0) Ur Specific [place] 1.025 (1.005-1.030) Urine Protein 100 H (NEGATIVE) mg/dL Urine Glucose (UA) 100 H (NEGATIVE) mg/dL Urine Ketones 40 H (NEGATIVE) mg/dL Urine Occult Blood Large H (NEGATIVE) Urine Nitrite Positive H (NEGATIVE) Urine Bilirubin Small H (NEGATIVE) Urine Urobilinogen 1.0 (0.2-1.0) E.U./dL Ur Leukocyte Esterase Trace H (NEGATIVE) Urine RBC Packed (0-5) /HPF Urine WBC 10-20 H (0-5) /HPF Ur Epithelial Cells Few /LPF Urine Bacteria Few (NONE TO FEW) /HPF Urine HCG, Qual Negative (NEGATIVE) Meds: Medications Generic Name Dose Route Start Last Admin Trade Name Freq PRN Reason Stop Dose Admin Sodium Chloride 10 ml 06/24/20 12:45 Saline Flush FLUSH Q8HR PRN keep vein open Departure - Departure Time of Disposition: 14:02 Disposition: Home, Self-Care 01 Condition: Good Clinical Impression: Chronic pelvic pain in female, Urinary tract infection - Discharge Information Prescriptions: Hydrocodone/Acetaminophen [Hydrocodone-Acetamin 10-325 mg] 1 each PO Q6HR PRN #10 tablet PRN Reason: Pain Nitrofurantoin Monohyd/M-Cryst [Macrobid 100 mg Capsule] 100 mg PO BID #14 capsule Phenazopyridine [Pyridium] 200 mg PO TID PRN #6 tab PRN Reason: Pain Instructions: Pelvic Pain, Female, [id number], Urinary Tract Infection, Adult, [id number] Referrals: Monserrat Thomas PA-C [Primary Care Provider] - Forms: ED Department Discharge Additional Instructions: 1. DISCHARGE HOME 2. MACROBID 100MG TWICE/DAY X 7 DAYS 3. PYRIDIUM 200MG #6 1 TABLET 3 TIMES/DAY NEEDED FOR PAIN 4. HYDROCODONE 10/325 #10 TAKE 1 TABLET EVERY 6 HOURS NEEDED FOR PELVIC PAIN 5. FOLLOW UP WITH PCP FOR FURTHER EVALUATION AND TREATMENT 6. RETURN TO ER FOR WORSENING SYMPTOMS Sepsis Event Note (ED) - Evaluation Sepsis Screening Result: No Definite Risk - Focused Exam Vital Signs: Vital Signs Temp Pulse Resp BP Pulse Ox 06/24/20 12:47 97.9 F 81 16 122/80 98 - My Orders Last 24 Hours: My Active Orders 06/24/20 12:45 Peripheral IV Care [RC] . DIRECTED Sodium Chloride 0.9% [Saline Flush] 10 ml FLUSH Q8HR PRN Peripheral IV Insertion Adult [OM.PC] Routine - Assessment/Plan Last 24 Hours: My Active Orders 06/24/20 12:45 Peripheral IV Care [RC] . DIRECTED Sodium Chloride 0.9% [Saline Flush] 10 ml FLUSH Q8HR PRN Peripheral IV Insertion Adult [OM.PC] Routine Assessment:: 1. CHRONIC PELVIC PAIN 2. URINARY TRACT INFECTION Plan: 1. DISCHARGE HOME 2. MACROBID 100MG TWICE/DAY X 7 DAYS 3. PYRIDIUM 200MG #6 1 TABLET 3 TIMES/DAY NEEDED FOR PAIN 4. HYDROCODONE 10/325 #10 TAKE 1 TABLET EVERY 6 HOURS NEEDED FOR PELVIC PAIN 5. FOLLOW UP WITH PCP FOR FURTHER EVALUATION AND TREATMENT 6. RETURN TO ER FOR WORSENING SYMPTOMS
[2020-06-24] MEDS ORDERED: Ketorolac 30 MG/ML SDV IVPUSH ONE (13:56)
[2020-06-24] MEDS ORDERED: Ketorolac 30 MG/ML SDV ONE (13:57)
== END 2020-06-24 14:18 | disposition home or self-care (01) ==
LOC: KA.ED 12:41
DX: N39.0 Urinary tract infection, site not specified (principal); Z72.0 Tobacco use; Z88.2 Allergy status to sulfonamides; Z98.890 Other specified postprocedural states
CPT/HCPCS: 81001; 81025; 96374; 99284; 99284-25; J1885

== ENCOUNTER 2020-10-25 09:34 | Day surgery (SDC) | payer OTHER ==
[~2020-10-25 09:34] MED LIST: Lactated Ringers 1,000 ML IV SCH; Sodium Chloride 0.9% 10 ML Syringe FLUSH PRN
[2020-10-25] MEDS ORDERED: Lidocaine 2% 5 ML SDV ONE ×2 (09:35→10:44)
[2020-10-25] MEDS ORDERED: Propofol 200 MG/20 ML SDV IV ONE (09:35)
[2020-10-25] MEDS ORDERED: Propofol 200 MG/20 ML SDV ONE (10:44)
[2020-10-25] MEDS ORDERED: Glycopyrrolate 0.2 MG/ML SDV ONE (10:44)
[2020-10-25] MEDS ORDERED: Midazolam 1 MG/ML 2 ML SDV ONE (10:44)
--- NOTE | 2020-10-25 11:13 | PCM.PN ---
- General Info Date of Service: 10/25/20 - Review of Systems Systems Review Comment:: 19-year-old female referred by Monserrat Thomas for EGD. She has been having symptoms of upper abdominal pain as well as nausea. The pain and nausea worsened with eating. She has been on acid blocking medication but symptoms are not improving over the last month. Her recent history and physical is reviewed and no significant changes are noted. I have discussed the proposed EGD with the patient. She agrees to proceed accepting risks. - Patient Data Vitals - Most Recent: Last Vital Signs Temp 96.7 F L 10/25/20 09:59 Pulse 66 10/25/20 09:59 Resp BP 120/78 10/25/20 09:59 Pulse Ox 98 10/25/20 09:59 Weight - Most Recent: 49.895 kg Lab Results Last 24 Hours: Laboratory Results - last 24 hr 10/25/20 Range/Units 09:50 Urine HCG, Qual Negative (NEGATIVE) Med Orders - Current: Current Medications Lactated Ringer's (Ringers, Lactated) 1,000 mls @ 50 mls/hr IV ASDIRECTED ZARIA Sodium Chloride (Sodium Chloride 0.9% 10 Ml Syringe) 10 ml FLUSH Q8HR PRN PRN Reason: keep vein open Discontinued Medications Glycopyrrolate (Glycopyrrolate 0.2 Mg/Ml Sdv) Confirm Administered Dose 0.2 mg .ROUTE .STK-MED ONE Stop: 10/25/20 10:45 Lidocaine (Lidocaine 2% 5 Ml Sdv) Confirm Administered Dose 5 ml .ROUTE .STK-MED ONE Stop: 10/25/20 10:45 Midazolam HCl (Midazolam 1 Mg/Ml 2 Ml Sdv) Confirm Administered Dose 4 mg .ROUTE .STK-MED ONE Stop: 10/25/20 10:45 Propofol (Propofol 200 Mg/20 Ml Sdv) Confirm Administered Dose 200 mg .ROUTE .STK-MED ONE Stop: 10/25/20 10:45 - Patient Data Lab Results Last 24 hrs: Laboratory Results - last 24 hr 10/25/20 Range/Units 09:50 Urine HCG, Qual Negative (NEGATIVE) Sepsis Event Note - Focused Exam Vital Signs: Vital Signs Temp Pulse BP Pulse Ox 10/25/20 09:59 96.7 F L 66 120/78 98 - Problem List Review Problem List Initiated/Reviewed/Updated: Yes - My Orders Last 24 Hours: My Active Orders 10/24/20 15:56 Resuscitation Status Routine 10/25/20 Breakfast Nothing Per Oral Diet [DIET] 10/25/20 09:30 Peripheral IV Care [RC] . DIRECTED Lactated Ringers [Ringers, Lactated] 1,000 ml IV ASDIRECTED Sodium Chloride 0.9% [Saline Flush] 10 ml FLUSH Q8HR PRN Peripheral IV Insertion Adult [OM.PC] Routine - Assessment Assessment:: Upper abdominal pain and nausea - Plan Plan:: EGD
--- NOTE | 2020-10-25 11:44 | PCM.OPNOTE ---
- General Post-Op/Procedure Note Date of Surgery/Procedure: 10/25/20 Operative Procedure(s): EGD with Biopsy Findings: Mild inflammation in gastric antrum Pre Op Diagnosis: Upper Abdominal Pain Post-Op Diagnosis: Gastritis Anesthesia Technique: MAC Primary Surgeon: Pete Sheikh Pathology: Biopsies of Duodenum and Stomach EBL in mLs: 3 Complications: None Condition: Good
--- NOTE | 2020-10-25 18:03 | OR ---
DATE OF SURGERY: 10/25/2020 SURGEON: Pete Sheikh MD PREOPERATIVE DIAGNOSIS: Upper abdominal pain. POSTOPERATIVE DIAGNOSIS: Gastritis. OPERATION PERFORMED: Esophagogastroduodenoscopy with biopsy. INDICATIONS FOR SURGERY: This 19-year-old female has been having symptoms of upper abdominal pain which have persisted despite taking PPI agent. She is referred for upper endoscopy. FINDINGS: The patient has a localized area of hyperemia and inflammation in the gastric antrum. No ulcers are seen, but there are areas where the tissue is red in color. The remainder of the stomach, the duodenum, and the esophagus otherwise appear normal. DESCRIPTION OF PROCEDURE: The patient was taken to the operating room. She was given intravenous sedation and with her in the left lateral decubitus position, digital rectal exam was performed showing no rectal masses. The Olympus gastroscope was inserted into the oral cavity through a mouth guard and under direct visualization, the scope is advanced down through the esophagus, stomach, and into the duodenum where examination to the 3rd portion was performed. Examination of the duodenum did appear normal, but because of the patient's symptoms, random biopsies of the duodenal mucosa are taken. The scope was withdrawn back into the stomach where full examination including retroflexed examination of the fundus was performed. Random biopsies were taken both in the gastric antrum near the area of inflammation as well as in the proximal stomach to evaluate the patient's pain and symptoms. The GE junction and esophagus are then re-examined as the scope was withdrawn. The scope was removed and the patient was taken from the operating room in satisfactory condition. ESTIMATED BLOOD LOSS: 3 mL. COMPLICATIONS: None. PROGNOSIS: Good. /[id number]/MODL
== END 2020-10-25 13:35 | disposition home or self-care (01) ==
LOC: KA.SDS 09:34
PROVIDERS: ATTEND Surgery
DX: K29.70 Gastritis, unspecified, without bleeding (principal); N39.0 Urinary tract infection, site not specified; E55.9 Vitamin D deficiency, unspecified; Z98.890 Other specified postprocedural states; Z88.2 Allergy status to sulfonamides; Z79.899 Other long term (current) drug therapy; F17.200 Nicotine dependence, unspecified, uncomplicated
CPT/HCPCS: 00731; 43239; 81025; J2250; J2704; J3490; J7120